=== PATIENT | male | born 1980 | race Caucasian/White ===

== ENCOUNTER 2018-07-13 10:52 | Emergency (ER) | payer MEDICAID, OTHER ==
[~2018-07-13] VITALS: Ht 185.4 cm; Wt 115.0 kg
[~2018-07-13 10:52] MED LIST: IBUP-1986 PO; MECL12.5 PO
[2018-07-13 10:59] VITALS: BP 169/103
[2018-07-13] MEDS ORDERED: TETanus/Pertussis (Acell)/Diphther VAC/PF (Tdap-Adult) 0.5ml syringe IM ONE (11:35)
[2018-07-13] MEDS ORDERED: bacitracin 15gm ointment TP ONE (11:35)
[2018-07-13] MEDS ORDERED: LIDOcaine 1.5% w/epinephrine 1:200,000 5ml ampul IJ ONE ×2 (11:35→11:55)
[2018-07-13] MEDS ORDERED: LIDOcaine 1% w/epiNEPHrine 1:200,000 30ml vial IJ ONE (12:05)
[2018-07-13] MEDS ORDERED: CEPH-571 PO (12:15)
== END 2018-07-13 12:22 | disposition home or self-care (01) ==
LOC: ER 10:52
DX: S81.012A Laceration without foreign body, left knee, initial encounter (principal); F12.90 Cannabis use, unspecified, uncomplicated; K21.9 Gastro-esophageal reflux disease without esophagitis; Z98.890 Other specified postprocedural states; Z88.8 Allergy status to other drugs, medicaments and biological substances; W29.3XXA Contact with powered garden and outdoor hand tools and machinery, initial encounter; Y93.89 Activity, other specified; Y92.096 Garden or yard of other non-institutional residence as the place of occurrence of the external cause; Y99.9 Unspecified external cause status
CPT/HCPCS: 12002; 73564; 99284; J3490; 90715